=== PATIENT | male | born 1990 | race Native Hawaiian/Other Pacific Islander ===

== ENCOUNTER 2017-08-16 13:51 | Emergency (ER) | payer OTHER ==
[2017-08-16] MEDS: predniSONE 20 MG TAB PO (14:10)
[2017-08-16] MEDS: IPRATROPIUM 0.5MG/ALBUTEROL 2.5MG INH SOL UD 3ML (DUONEB)(J7620) NEB (14:13)
== END 2017-08-16 14:46 | disposition home or self-care (01) ==
LOC: M ED 13:51
DX: J45.901 Unspecified asthma with (acute) exacerbation (principal); F17.210 Nicotine dependence, cigarettes, uncomplicated
CPT/HCPCS: 94640